=== PATIENT | male | born 1940 | race Caucasian/White ===

== ENCOUNTER 2020-10-13 11:01 | Emergency (ER) | payer MEDICARE, OTHER ==
[~2020-10-13] VITALS: Ht 180.3 cm; Wt 110.7 kg
--- NOTE | 2020-10-13 12:25 | PHYS DOC ---
Past History Past Medical History: A-Fib, Cancer, Hypertension Past Surgical History: Cancer Surgery, Other Additional Past Surgical Histo: 3 PREVIOUS BLADDER BIOPSY, MELANOMA REMOVAL W/CHEMO, PEFT SIDE PORT Alcohol Use: Occasionally Adult General Chief Complaint Chief Complaint: URINE CATHETER PROBLEM HPI HPI Patient is a 80-year-old male presents emergency department complaining of decreased urination with blood in urine that started last night. Patient reports 15 days ago he had a bladder biopsy with his urologist Dr. Echols from [facility], had a indwelling Meza catheter to dependent drainage inserted which he wore for 4 days before self removed as directed by his urologist. Patient states he had no problems urinating until last night. Patient does report feeling a burning sensation with his urination, patient states that he is now only dribbling urine. Patient reports the blood is bright red blood in his urine. Patient reports he called his urologist this morning and was directed by his urologist's registered nurse to temporarily stop taking his home medications Eliquis, meloxicam, and fish oil, and report to the ER for an evaluation for a possible Meza catheter insertion, will follow up with him on Thursday for appointment. Patient denies any abdominal pain, nausea, vomiting, diarrhea or constipation, denies fever or chills. Patient denies any chest pains, shortness of breath, chest congestion or nasal congestion. Patient denies any rashes of the skin, patient denies loss of taste or loss of smell. Review of Systems Review of Systems 14 body systems of review of systems have been reviewed. See HPI for pertinent positives and negative responses, otherwise all other systems are negative, nonpertinent or noncontributory. Allergies Allergies Allergies Coded Allergies Type Severity Reaction Last Updated Verified No Known Drug Allergies 10/13/20 No Physical Exam Physical Exam Constitutional: Well developed, well nourished, no acute distress, non-toxic appearance. 80-year-old male in no apparent distress HENT: Normocephalic, atraumatic, bilateral external ears normal, oropharynx moist, no oral exudates, nose normal. Eyes: PERRLA, EOMI, conjunctiva normal, no discharge. Neck: Normal range of motion, no tenderness, supple, no stridor. Cardiovascular:Heart rate regular rhythm, no murmur Lungs & Thorax: Bilateral breath sounds clear to auscultation Abdomen: Bowel sounds normal, soft, no tenderness, no masses, no pulsatile masses. Skin: Warm, dry, no erythema, no rash. Back: No tenderness, no CVA tenderness. Extremities: No tenderness, no cyanosis, no clubbing, ROM intact, no edema. Neurologic: Alert and oriented X 3, normal motor function, normal sensory function, no focal deficits noted. Psychologic: Affect normal, judgement normal, mood normal. : Normal testicular exam, no blood noticed at urinary meatus, no rashes, no swelling, no trauma appreciated. Current Patient Data Vital Signs Vital Signs Date Time Temp Pulse Resp B/P (MAP) Pulse Ox O2 Delivery O2 Flow Rate FiO2 10/13/20 11:15 97.7 58 20 140/44 (76) 97 Room Air EKG EKG [] Radiology/Procedures Radiology/Procedures [] Heart Score Risk Factors: Risk Factors: DM, Current or recent (<one month) smoker, HTN, HLP, family history of CAD, obesity. Risk Scores: Risk Factors: DM, Current or recent (<one month) smoker, HTN, HLP, family history of CAD, obesity. Course & Med Decision Making Course & Med Decision Making Pertinent Labs and Imaging studies reviewed. (See chart for details) 80-year-old male, vital signs reviewed, presents to the emergency department concerning for decreased urination with blood in his urine. Physical ex amination was unremarkable, performed post void bladder scan performed by ED theatre program director, 10 cc bright red color urine was sent to lab with post void equaled [address], Meza to dependent drainage, urinalysis assay pending, will consider antibiotic pending results. [facility] lab unable to differentiate urinalysis related to red blood cells, patient's complaint of burning with urination, will treat prophylactically with 500 mg Cipro daily for 3 days, patient has good and close follow-up with his urologist, will see his urologist on Thursday for evaluation of hematuria. Patient gave verbal understanding of discharge home instructions, Meza bag and Meza leg bag use, return to emergency department precautions and concerns, will see his urologist on Thursday, was discharged home without incident. Dragon Disclaimer Dragon Disclaimer This electronic medical record was generated, in whole or in part, using a voice recognition dictation system. Departure Departure: Impression: Primary Impression: Hematuria Additional Impressions: Urine retention Meza catheter in place Burning with urination Disposition: 01 DC HOME SELF CARE/HOMELESS Condition: GOOD Referrals: JAIME BHATT (PCP) Patient Instructions: Meza Catheter Care, Adult Additional Instructions: Please keep your Meza catheter in place until you are seen by your urologist this Thursday. Continue to temporarily discontinue your Eliquis, meloxicam, and fish oil as directed by your urologist, make sure you discuss this with him on Thursday for when you need to restart these medications., I am starting you on an antibiotic ciprofloxacin 500 mg by mouth once a day for the next 3 days, please let your urologist know that you are on this medication. Return to the emergency department for worsening symptoms or other concerns. Scripts Ciprofloxacin Hcl (CIPROFLOXACIN HCL) 500 Mg Tablet 1 TAB PO DAILY for URINARY TRACT INFECTION, #3 TAB 0 Refills Prov: YONY RIOS APRN 10/13/20 Problem Qualifiers Primary Impression: Hematuria Hematuria type: gross Qualified Codes: R31.0 - Gross hematuria YONY RIOS APRN Oct 13, 2020 12:25
[2020-10-13 13:10] LABS: AMORPHOUS SEDIMENT,UR PRESENT /HPF; BACTERIA,URINE FEW /HPF (0-FEW); CLARITY,URINE BLOODY; COLOR,URINE RED; RBC,URINE TNTC /HPF (0-2); SQUAMOUS EPITHELIAL CELL,UR FEW /LPF; WBC,URINE OCC /HPF (0-4)
[2020-10-13 13:35] VITALS: BP 131/56
[2020-10-13] MEDS ORDERED: CIPR500T2 PO (13:38)
== END 2020-10-13 13:40 | disposition home or self-care (01) ==
LOC: ER 11:01 → MERGE 11:01 → ER 13:40
DX: R31.0 Gross hematuria (principal); R30.0 Dysuria; R33.9 Retention of urine, unspecified; I48.91 Unspecified atrial fibrillation; I10 Essential (primary) hypertension
CPT/HCPCS: 51702; 81001; 99284-25

== ENCOUNTER 2020-10-15 10:01 | Emergency (ER) | payer MEDICARE, OTHER ==
[~2020-10-15] VITALS: Ht 180.3 cm; Wt 110.7 kg
[~2020-10-15 10:01] MED LIST: CIPR500T2 PO
--- NOTE | 2020-10-15 11:07 | PHYS DOC ---
Past History Past Medical History: A-Fib, Cancer, Hypertension Past Surgical History: Cancer Surgery, Other Additional Past Surgical Histo: 3 PREVIOUS BLADDER BIOPSY, MELANOMA REMOVAL W/CHEMO, LEFT SIDE PORT Alcohol Use: Occasionally General Adult EDM: Chief Complaint: URINE CATHETER PROBLEM HPI: HPI: Patient is a 80-year-old male coming in for leakage around his Meza catheter. Had a bladder biopsy in 17 days ago and left with a Meza but was told to remove it after 4 days. But started having blood in his urine and difficulty urinating with dysuria 3 days ago, was then seen and had a Meza placed. Denies any blood clots. Was on Eliquis for paroxysmal atrial fibrillation but has not been taking due to bleeding. States that darkness of blood in his urine has been lightening up. Denies any palpitations, lightheadedness, weakness or pallor. States he just woke up and noticed a little bit of blood-tinged urine around the meatus this morning. Denies any pain. States he otherwise been well without recent illness. Review of Systems: Review of Systems: All other systems within normal limits except for as noted in the HPI Allergies: Allergies: Allergies Coded Allergies Type Severity Reaction Last Updated Verified No Known Drug Allergies 10/13/20 No Physical Exam: PE: Constitutional: Well developed, well nourished, no acute distress, non-toxic appearance. [] HENT: Normocephalic, atraumatic, bilateral external ears normal, nose normal. [] Eyes: PERRLA, conjunctiva normal, no discharge. [] Neck: No rigidity, supple, no stridor. [] Cardiovascular: Regular rate and rhythm, brisk cap refill [] Lungs & Thorax: Non labored symmetric respirations, no tachypnea or respiratory distress [] Abdomen: Soft, nondistended, no tenderness to palpation : Meza in place without lesions around meatus. No active drainage. Dark brownish urine in tubing and Meza bag. Skin: Warm, dry, no erythema, no rash. [] Back: Unremarkable Extremities: No deformities, range of motion grossly intact, no lower extremity edema [] Neurologic: Alert and oriented X 3, no focal deficits noted. [] Psychologic: Affect normal, judgement normal, mood normal. [] Current Patient Data: Vital Signs: Vital Signs Date Time Temp Pulse Resp B/P (MAP) Pulse Ox O2 Delivery O2 Flow Rate FiO2 10/15/20 10:10 97.7 59 20 131/49 (76) 96 Room Air EKG: EKG: [] Radiology/Procedures: Radiology/Procedures: [] Heart Score: Risk Factors: Risk Factors: DM, Current or recent (<one month) smoker, HTN, HLP, family history of CAD, obesity. Risk Scores: Score 0 - 3: 2.5% MACE over next 6 weeks - Discharge Home Score 4 - 6: 20.3% MACE over next 6 weeks - Admit for Clinical Observation Score 7 - 10: 72.7% MACE over next 6 weeks - Early Invasive Strategies Course & Med Decision Making: Course & Med Decision Making Pertinent Labs and Imaging studies reviewed. (See chart for details) [] Dragon Disclaimer: Dragon Disclaimer: This electronic medical record was generated, in whole or in part, using a voice recognition dictation system. Departure Departure: Impression: Primary Impression: Problem with Meza catheter Disposition: 01 DC HOME SELF CARE/HOMELESS Condition: STABLE Referrals: JAIME BHATT (PCP) Patient Instructions: Meza Catheter Care, Adult DIEGO COSTA MD Oct 15, 2020 11:07
[2020-10-15 11:20] VITALS: BP 126/54
== END 2020-10-15 11:23 | disposition home or self-care (01) ==
LOC: MERGE 10:01 → ER 10:01
DX: T83.038A Leakage of other urinary catheter, initial encounter (principal); I10 Essential (primary) hypertension; I48.91 Unspecified atrial fibrillation; Y84.6 Urinary catheterization as the cause of abnormal reaction of the patient, or of later complication, without mention of misadventure at the time of the procedure; Y92.89 Other specified places as the place of occurrence of the external cause
CPT/HCPCS: 51702; 99284